=== PATIENT | male | born 1965 | race Caucasian/White ===

== ENCOUNTER 2019-12-07 06:17 | Emergency (ER) | payer OTHER ==
[2019-12-07 06:38] VITALS: TEMP 98.9; BMI 21.9
[2019-12-07 08:09] VITALS: BP 156/89; PULSE 86
[2019-12-07] MEDS ORDERED: predniSONE 20 MG TABLET (UD) PO ONE (08:20)
--- NOTE | 2019-12-07 08:46 | PDOC ---
Attending Attestation - Resident Resident Name: Allison Martinez - ED Attending Attestation I have performed the following: I have examined & evaluated the patient, The case was reviewed & discussed with the resident, I agree w/resident's findings & plan, Exceptions are as noted - HPI HPI: 12/07/19 15:56 54 yo M PMH COPD, current smoker, presenting with SOB and cough. States that starting this morning, he has developed worsening cough and SOB above his baseline, exacerbated by lying flat on his back. - Physicial Exam PE: 12/07/19 15:56 Vitals: Triage Vital signs reviewed General Appearance: No acute distress, well nourished well developed, Cardiac: Regular rate and rhythym, no murmurs, no rubs, no gallops, Lungs: Clear to auscultation bilateral, good air movement bilaterally, Abdomen: Soft, non distended, normal bowel sounds, non tender to palpation Extremities: Full range of motion to all extremities, no cyanosis, clubbing, or edema Skin: Warm and dry, no rashes or lesions, no rash, no petechiae Psych: Normal mood, normal affect - Medical Decision Making 12/07/19 15:56 Wheezing improved satting 99% on room air chest x-ray with no active disease We will discharge with MDI at home with spacer Findings, need for follow-up and strict return instructions discussed with patient. Discharge - Discharge Information Problems reviewed: Yes Clinical Impression/Diagnosis: SOB (shortness of breath), Cough, COPD exacerbation - Admission No - Additional Discharge Information Prescriptions: Prednisone [Prednisone 50 MG TABLETS] 50 mg PO DAILY #5 tablet Albuterol Sulfate Inhaler - [Ventolin HFA Inhaler -] 2 inh PO Q4H #1 inh - Follow up/Referral Referrals: [facility] [place] [Provider Group] Radha Blair DPM [Staff Physician] - Bryan Gersham MD, [Staff Physician] - - Patient Discharge Instructions Patient Printed Discharge Instructions: How to Use a Metered-Dose Inhaler Additional Instructions: You were seen with shortness of breath. Your X ray did not show any acute issues. Your symptoms are likely due to your COPD. We have given you referrals to primary care, pulmonology (lungs), and podiatry (foot). Please call to make appointments. Another inhaler has been prescribed, please read the attached instructions on how to take it properly. Return to the ER if you develop new or worsening symptoms. - Post Discharge Activity
--- NOTE | 2019-12-07 08:49 | PDOC ---
History of Present Illness - General Chief Complaint: Respiratory Stated Complaint: ASTHMA Time Seen by Provider: 12/07/19 07:54 - History of Present Illness Initial Comments: 12/07/19 08:44 54 yo M PMH COPD, current smoker, presenting with SOB and cough. States that starting this morning, he has developed worsening cough and SOB above his baseline, exacerbated by lying flat on his back. Got an albuterol inhaler 5 days ago but is not sure how to use it correctly; notes that he has tried 130 puffs in 5 days without relief. Denies CP, abd pain, N/V, fevers/chills. Past History - Past Medical History Allergies/Adverse Reactions: Allergies Allergy/AdvReac Type Severity Reaction Status Date / Time No Known Allergies Allergy Verified 12/07/19 06:20 Home Medications: Ambulatory Orders Albuterol Sulfate Inhaler - [Ventolin HFA Inhaler -] 2 inh PO Q4H #1 inh 12/07/19 Prednisone [Prednisone 50 MG TABLETS] 50 mg PO DAILY #5 tablet 12/07/19 Anemia: Yes COPD: No - Immunization History Td Vaccination: Yes TDAP Vaccination: Yes Immunization Up to Date: Yes - Psycho Social/Smoking Cessation Hx Smoking History: Unknown if ever smoked Have you smoked in the past 12 months: No Information on smoking cessation initiated: No Hx Alcohol Use: No Drug/Substance Use Hx: No Review of Systems - Review of Systems Comments:: 12/07/19 07:57 GENERAL/CONSTITUTIONAL: denies fever, chills, diaphoresis, generalized weakness, malaise, loss of appetite, weight change HEAD, EYES, EARS, NOSE AND THROAT: denies rhinorrhea, nasal congestion, throat pain, throat swelling, difficulty swallowing, mouth swelling, ear pain, eye pain, visual changes NEUROLOGIC: denies headache, focal weakness or paresthesias, dizziness, unsteady gait, seizure, mental status changes, bladder or bowel incontinence CARDIOVASCULAR: denies chest pain, syncope, palpitations, irregular heart rate, lightheadedness, peripheral edema RESPIRATORY: endorses cough, shortness of breath, dyspnea with exertion, and whe ezing. Denies orthopnea, stridor, hemoptysis GASTROINTESTINAL: denies abdominal pain, abdominal distension, nausea, vomiting, diarrhea, constipation, melena, hematochezia GENITOURINARY: denies dysuria, frequency, urgency, hesitancy, hematuria, flank pain, genital pain MUSCULOSKELETAL: denies myalgia, arthralgia, joint swelling, back pain, neck pain SKIN: denies rash, itching, pallor HEMATOLOGIC/IMMUNOLOGIC: denies easy bleeding, easy bruising, lymphadenopathy, frequent infections *Physical Exam - Vital Signs Last Vital Signs Temp Pulse Resp BP Pulse Ox 98.9 F 86 20 156/89 95 12/07/19 06:23 12/07/19 08:05 12/07/19 08:05 12/07/19 08:05 12/07/19 08:05 - Physical Exam 12/09/19 19:04 Gen: well-developed, well-nourished, NAD Neuro: AAOX4, CN II-XII grossly intact HEENT: atraumatic, normocephalic Neck: trachea midline, supple CV: regular rate, regular rhythm, no murmurs, rubs, or gallops Pulm: diffuse expiratory wheezing Abd: soft, non-distended, non-tender MSK: full ROM, intact pulses Extr: no edema, no deformities Skin: warm, dry. Onychotic nails. ED Treatment Course - RADIOLOGY Radiology Studies Ordered: Category Date Time Status CHEST PA & LAT [RAD] Stat Radiology 12/07/19 08:21 Completed Medical Decision Making - Medical Decision Making 12/07/19 08:42 Concern for potential COPD exacerbation considering cough, SOB, wheezing, smoking history - prednisone 50mg - referrals to pulmonology, primary care, podiatry - chest PA + L - education on using inhaler properly - likely dc 12/07/19 08:50 CXR clear. Will dc with outpatient referrals. Discharge - Discharge Information Problems reviewed: Yes Clinical Impression/Diagnosis: SOB (shortness of breath), Cough, COPD exacerbation - Additional Discharge Information Prescriptions: Prednisone [Prednisone 50 MG TABLETS] 50 mg PO DAILY #5 tablet Albuterol Sulfate Inhaler - [Ventolin HFA Inhaler -] 2 inh PO Q4H #1 inh - Follow up/Referral Referrals: [facility] [place] [Provider Group] Bryan Gresham MD, MD [Staff Physician] - Radha Blair DPM [Staff Physician] - - Patient Discharge Instructions Patient Printed Discharge Instructions: How to Use a Metered-Dose Inhaler Additional Instructions: You were seen with shortness of breath. Your X ray did not show any acute issues. Your symptoms are likely due to your COPD. We have given you referrals to primary care, pulmonology (lungs), and podiatry (foot). Please call to make appointments. Another inhaler has been prescribed, please read the attached instructions on how to take it properly. Return to the ER if you develop new or worsening symptoms. - Post Discharge Activity
[2019-12-07] MEDS ORDERED: predniSONE 20 MG TABLET (UD) ONE (08:52)
[2019-12-07] MEDS ORDERED: predniSONE 10 MG TABLET (UD) ONE (08:52)
== END 2019-12-07 09:05 ==
LOC: JER 06:17
DX: J44.1 Chronic obstructive pulmonary disease with (acute) exacerbation (principal)
CPT/HCPCS: 71046-TC-FY; 99283-25

== ENCOUNTER 2020-12-04 17:20 | Emergency (ER) | payer OTHER ==
[2020-12-04] MEDS ORDERED: ALBUTEROL SO4 2.5/IPRATROPIUM 0.5 INH SOL 3 ML VIAL.NEB. NEB ONE (17:55)
[2020-12-04 17:57] VITALS: BP 124/89; PULSE 92; TEMP 98.4; BMI 21.9
[2020-12-04] MEDS ORDERED: ALBUTEROL SO4 HFA INHALER IH ONE ×2 (18:56→18:57)
== END 2020-12-04 19:08 | disposition home or self-care (01) ==
LOC: JER 17:20
PROC: 3E0F7GC Introduction of Other Therapeutic Substance into Respiratory Tract, Via Natural or Artificial Opening (ICD-10-PCS; principal; 2020-12-04)
DX: J44.1 Chronic obstructive pulmonary disease with (acute) exacerbation (principal)
CPT/HCPCS: 71045-TC-FY; 99284-25

== ENCOUNTER 2021-01-28 22:12 | Emergency (ER) | payer OTHER ==
[2021-01-28] MEDS ORDERED: DEXAMETHASONE SOD PHOSPHATE 10 MG/1 ML VIAL ONE (22:23)
[2021-01-28 22:24] VITALS: BP 134/76; PULSE 85; TEMP 98.2; BMI 25.0
[2021-01-28] MEDS ORDERED: PETROLATUM, WHITE 30 GM TUBE TP ONE (22:40)
[2021-01-28] MEDS ORDERED: ALBUTEROL SO4 2.5/IPRATROPIUM 0.5 INH SOL 3 ML VIAL.NEB. NEB ONE (22:48)
[2021-01-28] MEDS: ALBUTEROL SO4 2.5/IPRATROPIUM 0.5 INH SOL 3 ML VIAL.NEB. NEB SCH ×2 (22:51→23:08)
[2021-01-28] MEDS ORDERED: guaiFENesin 600 MG TABLET.ER (FP) PO ONE (22:55)
== END 2021-01-28 23:55 | disposition home or self-care (01) ==
LOC: JER 22:12
PROC: 3E0F7GC Introduction of Other Therapeutic Substance into Respiratory Tract, Via Natural or Artificial Opening (ICD-10-PCS; principal; 2021-01-28)
DX: J45.909 Unspecified asthma, uncomplicated (principal)
CPT/HCPCS: 99283-25

== ENCOUNTER 2021-02-28 23:45 | Emergency (ER) | payer OTHER ==
[2021-02-28 23:54] VITALS: BP 137/91; PULSE 84; TEMP 98.1; BMI 19.4
[2021-03-01] MEDS ORDERED: DEXAMETHASONE SOD PHOSPHATE 4 MG/1 ML VIAL IVPUSH ONE (00:26)
[2021-03-01] MEDS ORDERED: DEXAMETHASONE SOD PHOSPHATE 10 MG/1 ML VIAL ONE (00:43)
[2021-03-01] MEDS ORDERED: ALBUTEROL SO4 2.5/IPRATROPIUM 0.5 INH SOL 3 ML VIAL.NEB. NEB ONE (00:43)
[2021-03-01] MEDS: ALBUTEROL SO4 2.5/IPRATROPIUM 0.5 INH SOL 3 ML VIAL.NEB. NEB SCH ×2 (00:50→01:40)
[2021-03-01 00:59] LABS: BASO % 0.9 % (0-2.0); EOS % 2.5 % (0-4.5); HEMATOCRIT 36.3 % (35.4-49); HEMOGLOBIN 12.6 GM/dL (11.7-16.9); LYMPH % 11.8 % (8-40); MCH 32.8 pg (25.7-33.7); MCHC 34.8 g/dl (32.0-35.9); MEAN CELL VOLUME 94.4 fl (80-96); MEAN PLT VOLUME 8.9 fl (7.5-11.1); MONO % 6.5 % (3.8-10.2); NEUT % 78.3 % (42.8-82.8); PLATELET COUNT 233 10^3/uL (134-434); RBC 3.85 M/mm3 (4.00-5.60); RDW 13.8 % (11.9-15.9); WHITE BLOOD COUNT 10.2 K/mm3 (4.0-10.0)
[2021-03-01 01:12] LABS: CALCIUM 8.7 mg/dL (8.5-10.1)
[2021-03-01 01:13] LABS: ALBUMIN 3.5 g/dl (3.4-5.0); BLOOD UREA NITROGEN 16.8 mg/dL (7-18)
[2021-03-01 01:16] LABS: CREATININE 0.9 mg/dL (0.55-1.3)
[2021-03-01 01:18] LABS: BILIRUBIN,TOTAL 0.4 mg/dL (0.2-1); TOT PROT 6.3 g/dl (6.4-8.2)
== END 2021-03-01 03:04 | disposition home or self-care (01) ==
LOC: JER 23:45
PROC: 3E0F7GC Introduction of Other Therapeutic Substance into Respiratory Tract, Via Natural or Artificial Opening (ICD-10-PCS; principal; 2021-03-01)
PROC: 3E033NZ Introduction of Analgesics, Hypnotics, Sedatives into Peripheral Vein, Percutaneous Approach (ICD-10-PCS; 2021-03-01)
DX: J45.20 Mild intermittent asthma, uncomplicated (principal)
CPT/HCPCS: 36415; 71046-TC-FY; 80053; 85025; 99284-25; C9803; U0003; U0005

== ENCOUNTER 2021-12-31 01:03 | Emergency (ER) | payer OTHER ==
[2021-12-31 01:18] VITALS: TEMP 97.7; BMI 23.5
[2021-12-31] MEDS ORDERED: predniSONE 20 MG TABLET (UD) PO ONE (01:29)
[2021-12-31] MEDS ORDERED: predniSONE 20 MG TABLET (UD) ONE (01:40)
[2021-12-31] MEDS ORDERED: ALBUTEROL SO4 HFA INHALER IH ONE ×2 (01:45→01:53)
[2021-12-31] MEDS: ALBUTEROL SO4 2.5/IPRATROPIUM 0.5 INH SOL 3 ML VIAL.NEB. NEB SCH ×3 (01:45→02:07)
[2021-12-31 03:47] VITALS: BP 139/76; PULSE 86
== END 2021-12-31 06:02 ==
LOC: JER 01:03
PROC: 3E0F7GC Introduction of Other Therapeutic Substance into Respiratory Tract, Via Natural or Artificial Opening (ICD-10-PCS; principal; 2021-12-31)
DX: R06.2 Wheezing (principal); J45.901 Unspecified asthma with (acute) exacerbation
CPT/HCPCS: 71045-TC-FY; 99283-25

== ENCOUNTER 2022-07-03 11:06 | Emergency (ER) | payer OTHER ==
[2022-07-03 11:35] VITALS: BP 123/76; PULSE 94; RESP 18; TEMP 98; BMI 19.5
[2022-07-03] MEDS ORDERED: methylPREDNISolone NA SUCC 125 MG/2 ML VIAL IVPUSH ONE (11:45)
[2022-07-03] MEDS ORDERED: methylPREDNISolone NA SUCC 125 MG/2 ML VIAL ONE (12:16)
[2022-07-03] MEDS ORDERED: ALBUTEROL SO4 2.5/IPRATROPIUM 0.5 INH SOL 3 ML VIAL.NEB. NEB ONE ×2 (12:16→12:38)
[2022-07-03] MEDS: ALBUTEROL SO4 2.5/IPRATROPIUM 0.5 INH SOL 3 ML VIAL.NEB. NEB SCH (12:22)
[2022-07-03 12:29] LABS: BASO % 1.4 % (0-2.0); EOS % 11.4 % (0-4.5); HEMATOCRIT 34.8 % (35.4-49); HEMOGLOBIN 12.1 GM/dL (11.7-16.9); LYMPH % 16.5 % (8-40); MCH 32.6 pg (25.7-33.7); MCHC 34.9 g/dl (32.0-35.9); MEAN CELL VOLUME 93.4 fl (80-96); MEAN PLT VOLUME 8.6 fl (7.5-11.1); MONO % 6.7 % (3.8-10.2); PLATELET COUNT 230 10^3/uL (134-434); RBC 3.73 M/mm3 (4.00-5.60); RDW 14.2 % (11.9-15.9); WHITE BLOOD COUNT 5.8 K/mm3 (4.0-10.0)
[2022-07-03 12:48] LABS: BLOOD UREA NITROGEN 12.3 mg/dL (7-18); CALCIUM 8.7 mg/dL (8.5-10.1)
[2022-07-03 12:50] LABS: ALBUMIN 3.1 g/dl (3.4-5.0); MAGNESIUM 2.2 mg/dL (1.8-2.4)
[2022-07-03 12:51] LABS: CREATININE 0.9 mg/dL (0.55-1.3)
[2022-07-03 12:53] LABS: BILIRUBIN,TOTAL 0.5 mg/dL (0.2-1); TOT PROT 6.6 g/dl (6.4-8.2)
[2022-07-03 13:38] LABS: PH,URINE 5.5 (5.0-8.0); URINE APPEARANCE CLEAR; URINE BILIRUBIN NEGATIVE (NEGATIVE); URINE COLOR YELLOW; URINE GLUCOSE (UA) TRACE (NEGATIVE); URINE KETONE NEGATIVE (NEGATIVE); URINE LEUK ESTERASE NEGATIVE (NEGATIVE); URINE NITRITE NEGATIVE (NEGATIVE); URINE PROTEIN TRACE (NEGATIVE); URINE UROBILINOGEN 0.2 mg/dL (0.2-1.0)
[2022-07-03] MEDS ORDERED: ALBUTEROL SO4 HFA INHALER IH ONE ×2 (13:44→14:06)
[2022-07-03] MEDS ORDERED: SULFAMETHOXAZOLE/TRIMETHOPRIM 800MG/160MG D.S. TABLET PO ONE (13:44)
[2022-07-03] MEDS ORDERED: SULFAMETHOXAZOLE/TRIMETHOPRIM 800MG/160MG D.S. TABLET ONE (14:05)
== END 2022-07-03 14:32 | disposition home or self-care (01) ==
LOC: JER 11:06
PROC: 3E033GC Introduction of Other Therapeutic Substance into Peripheral Vein, Percutaneous Approach (ICD-10-PCS; principal; 2022-07-03)
PROC: 3E0F7GC Introduction of Other Therapeutic Substance into Respiratory Tract, Via Natural or Artificial Opening (ICD-10-PCS; 2022-07-03)
DX: J44.1 Chronic obstructive pulmonary disease with (acute) exacerbation (principal); L73.9 Follicular disorder, unspecified
CPT/HCPCS: 0241U-QW; 36415; 71045-TC-FY; 80053; 81003; 83735; 84484; 85025; 87040; 87086; 93005; 93010; 99285-25

== ENCOUNTER 2022-08-05 12:05 | Emergency (ER) | payer OTHER ==
[2022-08-05 12:12] VITALS: RESP 18; TEMP 97.9; BMI 19.3
[2022-08-05] MEDS ORDERED: ALBUTEROL SO4 HFA INHALER IH ONE ×2 (14:21→14:43)
[2022-08-05 14:38] VITALS: BP 125/75; PULSE 90
[2022-08-05 15:09] LABS: BASO % 0.3 % (0-2.0); EOS % 0.1 % (0-4.5); HEMATOCRIT 40.6 % (35.4-49); HEMOGLOBIN 13.9 GM/dL (11.7-16.9); LYMPH % 10.9 % (8-40); MCH 32.2 pg (25.7-33.7); MCHC 34.2 g/dl (32.0-35.9); MEAN CELL VOLUME 94.1 fl (80-96); MEAN PLT VOLUME 8.7 fl (7.5-11.1); MONO % 6.8 % (3.8-10.2); NEUT % 81.9 % (42.8-82.8); PLATELET COUNT 200 10^3/uL (134-434); RBC 4.32 M/mm3 (4.00-5.60); RDW 13.8 % (11.9-15.9); WHITE BLOOD COUNT 7.6 K/mm3 (4.0-10.0)
[2022-08-05 15:17] LABS: INR 1.14 (0.83-1.09); PROTHROMBIN TIME (PATIENT) 13.1 SEC (9.7-13.0)
[2022-08-05 15:20] LABS: ACTIVATED PTT 28.5 SECONDS (25.2-36.5)
[2022-08-05 15:29] LABS: CALCIUM 8.7 mg/dL (8.5-10.1)
[2022-08-05 15:30] LABS: ALBUMIN 3.5 g/dl (3.4-5.0); BLOOD UREA NITROGEN 30.8 mg/dL (7-18)
[2022-08-05 15:33] LABS: CREATININE 0.8 mg/dL (0.55-1.3)
[2022-08-05 15:35] LABS: BILIRUBIN,TOTAL 0.4 mg/dL (0.2-1); TOT PROT 6.9 g/dl (6.4-8.2)
[2022-08-05] MEDS ORDERED: ACETAMINOPHEN 325 MG TABLET (FP) PO ONE (18:26)
== END 2022-08-05 20:50 | disposition home or self-care (01) ==
LOC: JER 12:05
DX: R05.1 Acute cough (principal)
CPT/HCPCS: 0241U-QW; 36415; 71046-TC-FY; 80053; 84484; 85025; 85610; 85730; 93005; 93010; 99284-25

== ENCOUNTER 2022-09-18 15:38 | Emergency (ER) | payer OTHER ==
[2022-09-18 16:10] VITALS: RESP 20; BMI 20.3
[2022-09-18] MEDS ORDERED: ALBUTEROL SO4 2.5/IPRATROPIUM 0.5 INH SOL 3 ML VIAL.NEB. NEB SCH (16:15)
[2022-09-18 17:59] LABS: BASO % 0.4 % (0-2.0); EOS % 7.2 % (0-4.5); HEMATOCRIT 43.3 % (35.4-49); HEMOGLOBIN 14.5 GM/dL (11.7-16.9); LYMPH % 8.4 % (8-40); MCH 31.7 pg (25.7-33.7); MCHC 33.6 g/dl (32.0-35.9); MEAN CELL VOLUME 94.4 fl (80-96); MEAN PLT VOLUME 8.8 fl (7.5-11.1); MONO % 2.5 % (3.8-10.2); NEUT % 81.5 % (42.8-82.8); PLATELET COUNT 222 10^3/uL (134-434); RBC 4.58 M/mm3 (4.00-5.60); RDW 14.3 % (11.9-15.9)
[2022-09-18 18:04] LABS: ALBUMIN 3.6 g/dl (3.4-5.0); BLOOD UREA NITROGEN 14.6 mg/dL (7-18)
[2022-09-18 18:07] LABS: CREATININE 0.7 mg/dL (0.55-1.3)
[2022-09-18 18:08] LABS: BILIRUBIN,TOTAL 0.8 mg/dL (0.2-1)
[2022-09-18 18:09] LABS: TOT PROT 6.8 g/dl (6.4-8.2)
[2022-09-18 18:50] VITALS: BP 125/68; PULSE 89; TEMP 97.9
== END 2022-09-18 18:35 | disposition home or self-care (01) ==
LOC: JER 15:38
PROC: 3E0F7GC Introduction of Other Therapeutic Substance into Respiratory Tract, Via Natural or Artificial Opening (ICD-10-PCS; principal; 2022-09-18)
DX: J44.9 Chronic obstructive pulmonary disease, unspecified (principal)
CPT/HCPCS: 0241U-QW; 36415; 71046-TC-FY; 80053; 84484; 85025; 99285-25

== ENCOUNTER 2022-09-27 11:36 | Emergency (ER) | payer OTHER ==
[2022-09-27] MEDS ORDERED: ALBUTEROL SO4 2.5/IPRATROPIUM 0.5 INH SOL 3 ML VIAL.NEB. NEB ONE ×4 (12:15→13:01)
[2022-09-27 12:23] VITALS: RESP 20; TEMP 97.8; BMI 19.5
[2022-09-27] MEDS ORDERED: DEXAMETHASONE 4 MG TABLET (FP) PO ONE (12:44)
[2022-09-27] MEDS ORDERED: DEXAMETHASONE 4 MG TABLET (FP) ONE (12:51)
[2022-09-27] MEDS ORDERED: ACETAMINOPHEN 325 MG TABLET (FP) PO ONE (13:48)
[2022-09-27] MEDS ORDERED: ALBUTEROL SO4 HFA INHALER IH PRN (14:06)
[2022-09-27] MEDS ORDERED: ACETAMINOPHEN 325 MG TABLET (FP) ONE (14:08)
[2022-09-27] MEDS ORDERED: ALBUTEROL SO4 HFA INHALER IH ONE (14:09)
[2022-09-27] MEDS ORDERED: AZITHROMYCIN 250 MG TABLET PO ONE (14:14)
[2022-09-27] MEDS ORDERED: AZITHROMYCIN 500 MG TABLET ONE (14:28)
[2022-09-27 15:10] VITALS: BP 128/84; PULSE 91
== END 2022-09-27 15:10 | disposition home or self-care (01) ==
LOC: JER 11:36
PROC: 3E0F7GC Introduction of Other Therapeutic Substance into Respiratory Tract, Via Natural or Artificial Opening (ICD-10-PCS; principal; 2022-09-27)
DX: J45.901 Unspecified asthma with (acute) exacerbation (principal)
CPT/HCPCS: 93005; 93010; 99285-25

== ENCOUNTER 2022-10-05 12:50 | Emergency (ER) | payer OTHER ==
[2022-10-05 13:40] VITALS: RESP 20; TEMP 97.5; BMI 20.3
[2022-10-05] MEDS ORDERED: ALBUTEROL SO4 2.5/IPRATROPIUM 0.5 INH SOL 3 ML VIAL.NEB. NEB ONE ×2 (13:50→14:10)
[2022-10-05] MEDS ORDERED: AZITHROMYCIN IVPB 500 MG in DEXTROSE 5%-WATER - 250 ML IVPB ONE (13:50)
[2022-10-05] MEDS ORDERED: methylPREDNISolone NA SUCC 125 MG/2 ML VIAL IVPB ONE (13:50)
[2022-10-05] MEDS ORDERED: AZITHROMYCIN IVPB 500 MG/250 ML BAG IVPB ONE (14:10)
[2022-10-05] MEDS ORDERED: methylPREDNISolone NA SUCC 125 MG/2 ML VIAL ONE (14:10)
[2022-10-05 15:15] LABS: BASO % 0.6 % (0-2.0); EOS % 5.4 % (0-4.5); HEMATOCRIT 41.3 % (35.4-49); HEMOGLOBIN 14.2 GM/dL (11.7-16.9); LYMPH % 8.7 % (8-40); MCHC 34.3 g/dl (32.0-35.9); MEAN CELL VOLUME 93.4 fl (80-96); MONO % 2.4 % (3.8-10.2); NEUT % 82.9 % (42.8-82.8); PLATELET COUNT 229 10^3/uL (134-434); RBC 4.42 M/mm3 (4.00-5.60); RDW 13.6 % (11.9-15.9); WHITE BLOOD COUNT 8.7 K/mm3 (4.0-10.0)
[2022-10-05 15:20] LABS: INR 1.18 (0.83-1.09); PROTHROMBIN TIME (PATIENT) 13.6 SEC (9.7-13.0)
[2022-10-05 15:23] LABS: ACTIVATED PTT 29.9 SECONDS (25.2-36.5)
[2022-10-05 15:34] LABS: ALBUMIN 3.5 g/dl (3.4-5.0); CALCIUM 8.8 mg/dL (8.5-10.1)
[2022-10-05 15:35] LABS: BLOOD UREA NITROGEN 17.5 mg/dL (7-18)
[2022-10-05 15:39] LABS: TOT PROT 6.6 g/dl (6.4-8.2)
[2022-10-05 15:43] LABS: BILIRUBIN,TOTAL 0.8 mg/dL (0.2-1)
[2022-10-05] MEDS ORDERED: ASPIRIN 81 MG CHEWABLE TABLETS PO ONE (16:14)
[2022-10-05] MEDS ORDERED: ASPIRIN 325 MG TABLET ONE (16:28)
[2022-10-05 18:29] VITALS: BP 113/71; PULSE 90
== END 2022-10-05 18:31 | disposition short-term general hospital (02) ==
LOC: JER 12:50
PROC: 3E0F7GC Introduction of Other Therapeutic Substance into Respiratory Tract, Via Natural or Artificial Opening (ICD-10-PCS; principal; 2022-10-05)
PROC: 3E03329 Introduction of Other Anti-infective into Peripheral Vein, Percutaneous Approach (ICD-10-PCS; 2022-10-05)
PROC: 3E033GC Introduction of Other Therapeutic Substance into Peripheral Vein, Percutaneous Approach (ICD-10-PCS; 2022-10-05)
DX: J44.1 Chronic obstructive pulmonary disease with (acute) exacerbation (principal); R94.31 Abnormal electrocardiogram [ECG] [EKG]
CPT/HCPCS: 0241U-QW; 36415; 71046-TC-FY; 80053; 84484; 85025; 85610; 85730; 93005; 93010; 99285-25

== ENCOUNTER 2023-04-07 07:49 | Emergency (ER) | payer OTHER ==
[2023-04-07] MEDS ORDERED: ALBUTEROL SO4 2.5/IPRATROPIUM 0.5 INH SOL 3 ML VIAL.NEB. NEB ONE ×3 (08:04→08:55)
[2023-04-07] MEDS ORDERED: ALBUTEROL SO4 0.083% IH SOL 2.5 MG/3 ML VIAL.NEB. NEB ONE (08:04)
[2023-04-07] MEDS ORDERED: DEXAMETHASONE SOD PHOSPHATE 10 MG/1 ML VIAL ONE (08:05)
[2023-04-07] MEDS ORDERED: ACETAMINOPHEN 325 MG TABLET (FP) PO ONE (08:41)
[2023-04-07 08:56] VITALS: BP 142/91; PULSE 70; RESP 24; TEMP 98; BMI 18.8
[2023-04-07] MEDS ORDERED: ACETAMINOPHEN 325 MG TABLET (FP) ONE (08:56)
[2023-04-07 09:00] LABS: VENOUS BASE EXCESS 2.4 mmol/L (-2-2); VENOUS O2 SATURATION 44.1 % (70-80); VENOUS PCO2 62.8 mmHg (38-52); VENOUS PH 7.306 (7.310-7.410)
[2023-04-07 09:03] LABS: BASO % 0.6 % (0-2.0); EOS % 6.7 % (0-4.5); HEMOGLOBIN 14.1 GM/dL (11.7-16.9); LYMPH % 11.3 % (8-40); MCH 30.9 pg (25.7-33.7); MCHC 32.9 g/dl (32.0-35.9); MEAN CELL VOLUME 93.9 fl (80-96); MEAN PLT VOLUME 9.5 fl (7.5-11.1); MONO % 3.3 % (3.8-10.2); NEUT % 78.1 % (42.8-82.8); PLATELET COUNT 206 10^3/uL (134-434); RBC 4.57 M/mm3 (4.00-5.60); RDW 13.8 % (11.9-15.9); WHITE BLOOD COUNT 7.9 K/mm3 (4.0-10.0)
[2023-04-07 09:26] LABS: POTASSIUM 3.9 mmol/L (3.5-5.1)
[2023-04-07 09:28] LABS: ALBUMIN 3.5 g/dl (3.4-5.0); BLOOD UREA NITROGEN 14.1 mg/dL (7-18); CALCIUM 8.6 mg/dL (8.5-10.1)
[2023-04-07 09:32] LABS: CREATININE 0.9 mg/dL (0.55-1.3)
[2023-04-07 09:33] LABS: BILIRUBIN,TOTAL 0.4 mg/dL (0.2-1); TOT PROT 6.6 g/dl (6.4-8.2)
[2023-04-07 09:36] LABS: N-TERMINAL BNP 3064.7 pg/ml (5-125)
[2023-04-07] MEDS ORDERED: AZITHROMYCIN IVPB 500 MG in DEXTROSE 5%-WATER - 250 ML IVPB ONE (10:58)
[2023-04-07] MEDS ORDERED: AZITHROMYCIN IVPB 500 MG/250 ML BAG IVPB ONE (11:22)
== END 2023-04-07 13:54 | disposition home or self-care (01) ==
LOC: JER 07:49
PROC: 3E03329 Introduction of Other Anti-infective into Peripheral Vein, Percutaneous Approach (ICD-10-PCS; principal; 2023-04-07)
PROC: 3E033GC Introduction of Other Therapeutic Substance into Peripheral Vein, Percutaneous Approach (ICD-10-PCS; 2023-04-07)
PROC: 3E0F7GC Introduction of Other Therapeutic Substance into Respiratory Tract, Via Natural or Artificial Opening (ICD-10-PCS; 2023-04-07)
DX: R06.02 Shortness of breath (principal); R41.82 Altered mental status, unspecified; J44.1 Chronic obstructive pulmonary disease with (acute) exacerbation
CPT/HCPCS: 0241U-QW; 36415; 71045-TC-FY; 80053; 82803; 83880; 84484; 85025; 93005; 93010; 99285-25

== ENCOUNTER 2024-03-17 03:03 | Emergency (ER) | payer OTHER ==
[2024-03-17 03:11] VITALS: BMI 21.1
[2024-03-17] MEDS ORDERED: ALBUTEROL SO4 2.5/IPRATROPIUM 0.5 INH SOL 3 ML VIAL.NEB. NEB ONE ×2 (03:15→03:26)
[2024-03-17] MEDS ORDERED: DEXAMETHASONE SOD PHOSPHATE 10 MG/1 ML VIAL ONE (03:26)
[2024-03-17 04:12] LABS: VENOUS BASE EXCESS -0.1 mmol/L (-2-2); VENOUS O2 SATURATION 88.2 % (70-80); VENOUS PCO2 45.4 mmHg (38-52); VENOUS PH 7.368 (7.310-7.410)
[2024-03-17 04:32] LABS: BASO % 0.4 % (0-2.0); EOS % 5.8 % (0-4.5); HEMATOCRIT 39.3 % (35.4-49); HEMOGLOBIN 13.5 GM/dL (11.7-16.9); LYMPH % 11.8 % (8-40); MCH 31.7 pg (25.7-33.7); MCHC 34.3 g/dl (32.0-35.9); MEAN CELL VOLUME 92.3 fl (80-96); MEAN PLT VOLUME 9.3 fl (7.5-11.1); MONO % 5.1 % (3.8-10.2); NEUT % 76.9 % (42.8-82.8); PLATELET COUNT 187 10^3/uL (134-434); RBC 4.26 M/mm3 (4.00-5.60); RDW 13.7 % (11.9-15.9); WHITE BLOOD COUNT 8.5 K/mm3 (4.0-10.0)
[2024-03-17 04:34] LABS: INR 1.21 (0.83-1.09); PROTHROMBIN TIME (PATIENT) 13.8 SEC (9.7-13.0)
[2024-03-17 04:36] LABS: ACTIVATED PTT 30.6 SECONDS (25.2-36.5)
[2024-03-17 04:45] LABS: POTASSIUM 4.2 mmol/L (3.5-5.1)
[2024-03-17 04:47] LABS: ALBUMIN 3.2 g/dl (3.4-5.0); BLOOD UREA NITROGEN 16.4 mg/dL (7-18)
[2024-03-17 04:50] LABS: CREATININE 1.1 mg/dL (0.55-1.3)
[2024-03-17 04:52] LABS: BILIRUBIN,TOTAL 0.4 mg/dL (0.2-1)
[2024-03-17] MEDS: SODIUM CHLORIDE 0.9% 500 ML INFUS.BAG IV ONE (05:36)
[2024-03-17 08:50] VITALS: BP 98/74; PULSE 66; RESP 20; TEMP 98
== END 2024-03-17 09:26 | disposition home or self-care (01) ==
LOC: JER 03:03
DX: J44.1 Chronic obstructive pulmonary disease with (acute) exacerbation (principal); J45.901 Unspecified asthma with (acute) exacerbation; R05.9 Cough, unspecified; R09.81 Nasal congestion; R06.02 Shortness of breath; F14.10 Cocaine abuse, uncomplicated; Z20.822 Contact with and (suspected) exposure to COVID-19
CPT/HCPCS: 0241U-QW; 36415; 71045-TC-FY; 80053; 82803; 84484; 85025; 85610; 85730; 93005; 93010; 99285-25

== ENCOUNTER 2024-04-03 05:57 | Inpatient (IN) | payer OTHER ==
[2024-04-03] MEDS ORDERED: ACETAMINOPHEN INJECTION 100 ML IVPB ONE (08:24)
[2024-04-03] MEDS: SODIUM CHLORIDE 0.9% 500 ML INFUS.BAG IV ONE (10:20)
[2024-04-03] MEDS: ACETAMINOPHEN 1000 MG/100 ML BAG IVPB ONE (10:20)
[2024-04-03 10:37] LABS: BASO % 0.8 % (0-2.0); EOS % 5.3 % (0-4.5); HEMATOCRIT 41.5 % (35.4-49); LYMPH % 12.2 % (8-40); MCH 31.4 pg (25.7-33.7); MCHC 33.7 g/dl (32.0-35.9); MEAN CELL VOLUME 93.2 fl (80-96); MEAN PLT VOLUME 9.1 fl (7.5-11.1); MONO % 4.1 % (3.8-10.2); NEUT % 77.6 % (42.8-82.8); PLATELET COUNT 203 10^3/uL (134-434); RBC 4.45 M/mm3 (4.00-5.60); RDW 14.4 % (11.9-15.9); WHITE BLOOD COUNT 9.7 K/mm3 (4.0-10.0)
[2024-04-03 10:40] LABS: INR 1.16 (0.83-1.09); PROTHROMBIN TIME (PATIENT) 13.1 SEC (9.7-13.0)
[2024-04-03 10:43] LABS: ACTIVATED PTT 30.7 SECONDS (25.2-36.5)
[2024-04-03 11:06] LABS: POTASSIUM 4.7 mmol/L (3.5-5.1)
[2024-04-03 11:07] LABS: CALCIUM 8.8 mg/dL (8.5-10.1)
[2024-04-03 11:08] LABS: ALBUMIN 3.5 g/dl (3.4-5.0); MAGNESIUM 2.2 mg/dL (1.8-2.4)
[2024-04-03 11:12] LABS: BILIRUBIN,TOTAL 0.7 mg/dL (0.2-1); TOT PROT 6.8 g/dl (6.4-8.2)
[2024-04-03] MEDS ORDERED: morphine SULFATE 4 MG/ML VIAL ONE ×2 (14:36→20:02)
[2024-04-03] MEDS: morphine SULFATE 4 MG/ML VIAL IVPUSH ONE ×2 (14:40→20:10)
[2024-04-03] MEDS: DEXTROSE 5%-LACTATED RINGERS 1,000 ML IV SCH (19:24)
[2024-04-04 08:59] VITALS: BP 106/83; PULSE 57; RESP 18; TEMP 98.1
[2024-04-04] MEDS: ACETAMINOPHEN 1000 MG/100 ML BAG IVPB PRN (09:22)
[2024-04-04 10:05] LABS: INR 1.25 (0.83-1.09); PROTHROMBIN TIME (PATIENT) 14.3 SEC (9.7-13.0)
[2024-04-04 10:07] LABS: BASO % 0.7 % (0-2.0); EOS % 8.5 % (0-4.5); HEMATOCRIT 36.2 % (35.4-49); HEMOGLOBIN 12.3 GM/dL (11.7-16.9); LYMPH % 17.9 % (8-40); MCH 31.5 pg (25.7-33.7); MCHC 34.1 g/dl (32.0-35.9); MEAN CELL VOLUME 92.4 fl (80-96); MEAN PLT VOLUME 9.3 fl (7.5-11.1); MONO % 4.5 % (3.8-10.2); NEUT % 68.4 % (42.8-82.8); PLATELET COUNT 177 10^3/uL (134-434); RBC 3.92 M/mm3 (4.00-5.60); RDW 14.3 % (11.9-15.9); WHITE BLOOD COUNT 6.7 K/mm3 (4.0-10.0)
[2024-04-04 10:19] LABS: POTASSIUM 4.2 mmol/L (3.5-5.1)
[2024-04-04 10:26] LABS: BLOOD UREA NITROGEN 11.5 mg/dL (7-18); CALCIUM 7.9 mg/dL (8.5-10.1); MAGNESIUM 2.1 mg/dL (1.8-2.4)
[2024-04-04 10:28] LABS: ALBUMIN 2.6 g/dl (3.4-5.0)
[2024-04-04 10:29] LABS: CREATININE 0.8 mg/dL (0.55-1.3); PHOSPHOROUS 3.4 mg/dL (2.5-4.9)
[2024-04-04 10:30] LABS: BILIRUBIN,TOTAL 0.7 mg/dL (0.2-1); TOT PROT 5.2 g/dl (6.4-8.2)
[2024-04-04 10:53] LABS: METHADONE, UR NEGATIVE (NEGATIVE); URINE BARBITURATES NEGATIVE (NEGATIVE)
[2024-04-04 10:54] LABS: PHENCYCLIDINE,URINE NEGATIVE (NEGATIVE); URINE BENZODIAZEPINES NEGATIVE (NEGATIVE)
[2024-04-04 10:59] LABS: COCAINE, UR POSITIVE (NEGATIVE); OPIATES, URI POSITIVE (NEGATIVE); URINE AMPHETAMINES NEGATIVE (NEGATIVE)
== END 2024-04-04 12:31 | disposition left against medical advice (07) | DRG 247 ==
LOC: JER 05:57 → JERBED 17:26 → J6S 04-04 02:47
PROVIDERS: ADMIT Internal Medicine; ATTEND Internal Medicine
DX: K56.1 Intussusception (principal); J44.9 Chronic obstructive pulmonary disease, unspecified; F19.10 Other psychoactive substance abuse, uncomplicated; J45.909 Unspecified asthma, uncomplicated; F17.200 Nicotine dependence, unspecified, uncomplicated; I44.7 Left bundle-branch block, unspecified; F14.10 Cocaine abuse, uncomplicated
CPT/HCPCS: 36415; 71045-TC-FY; 74177-TC; 80053; 80307; 83605; 83690; 83735; 84100; 85025; 85610; 85730; 86850; 86900; 86901; 93005; 93010; 99285-25; J0131; Q9967

== ENCOUNTER 2024-09-21 08:16 | Emergency (ER) | payer OTHER ==
[2024-09-21 08:30] VITALS: BP 110/87; PULSE 88; RESP 18; TEMP 97.3; BMI 18.9
[2024-09-21] MEDS ORDERED: ASPIRIN 81 MG CHEWABLE TABLETS ONE ×2 (09:01→11:34)
[2024-09-21] MEDS: ASPIRIN 81 MG CHEWABLE TABLETS PO ONE ×2 (09:05→11:35)
[2024-09-21 10:02] LABS: EOS % 11.1 % (0-4.5); HEMATOCRIT 39.6 % (35.4-49); HEMOGLOBIN 13.1 GM/dL (11.7-16.9); LYMPH % 20.9 % (8-40); MCH 30.4 pg (25.7-33.7); MCHC 33.1 g/dl (32.0-35.9); MEAN CELL VOLUME 91.9 fl (80-96); MEAN PLT VOLUME 9.7 fl (7.5-11.1); MONO % 8.8 % (3.8-10.2); NEUT % 58.2 % (42.8-82.8); PLATELET COUNT 179 10^3/uL (134-434); RBC 4.31 M/mm3 (4.00-5.60); RDW 16.3 % (11.9-15.9); WHITE BLOOD COUNT 5.3 K/mm3 (4.0-10.0)
[2024-09-21 10:28] LABS: POTASSIUM 4.5 mmol/L (3.5-5.1)
[2024-09-21 10:31] LABS: ALBUMIN 3.1 g/dl (3.4-5.0); BLOOD UREA NITROGEN 27.7 mg/dL (7-18)
[2024-09-21 10:34] LABS: CREATININE 0.9 mg/dL (0.55-1.3)
[2024-09-21 10:35] LABS: BILIRUBIN,TOTAL 0.5 mg/dL (0.2-1); TOT PROT 5.9 g/dl (6.4-8.2)
[2024-09-21 10:41] LABS: INR 1.19 (0.83-1.09); PROTHROMBIN TIME (PATIENT) 13.4 SEC (9.7-13.0)
[2024-09-21 10:43] LABS: ACTIVATED PTT 30.1 SECONDS (25.2-36.5)
[2024-09-21] MEDS ORDERED: CLOPIDOGREL BISULFATE 300 MG TABLET ONE (11:33)
[2024-09-21] MEDS ORDERED: HEPARIN NA (PORCINE) 5,000 UNITS/ML 1ML VIAL IVPUSH PRN ×2 (11:34)
[2024-09-21] MEDS ORDERED: HEPARIN NA (PORCINE) 5,000 UNITS/ML 1ML VIAL IVPUSH ONE (11:34)
[2024-09-21] MEDS: CLOPIDOGREL BISULFATE 300 MG TABLET PO ONE (11:35)
[2024-09-21] MEDS ORDERED: HEPARIN NA (PORCINE) 5,000 UNITS/ML 1ML VIAL ONE (11:44)
[2024-09-21] MEDS ORDERED: HEPARIN INFUSION - 25,000 UNITS/500 ML INFUS.BAG IVPB ONE (11:44)
[2024-09-21] MEDS ORDERED: HEPARIN INFUSION - 25,000 UNITS/500 ML INFUS.BAG IVPB SCH (11:45)
== END 2024-09-21 14:11 | disposition home or self-care (01) ==
LOC: JER 08:16
DX: F14.10 Cocaine abuse, uncomplicated (principal); R07.9 Chest pain, unspecified; Z20.822 Contact with and (suspected) exposure to COVID-19
CPT/HCPCS: 0241U-QW; 36415; 71045-TC-FY; 80053; 84484; 85025; 85610; 85730; 93005; 93010; 99285-25

== ENCOUNTER 2024-10-26 09:06 | Emergency (ER) | payer OTHER ==
[2024-10-26 10:31] VITALS: BP 102/89; PULSE 93; RESP 22; TEMP 98.3; BMI 17.2
[2024-10-26 11:44] LABS: EOS % 6.8 % (0-4.5); HEMATOCRIT 39.3 % (35.4-49); HEMOGLOBIN 12.8 GM/dL (11.7-16.9); LYMPH % 23.2 % (8-40); MCH 30.4 pg (25.7-33.7); MCHC 32.6 g/dl (32.0-35.9); MEAN CELL VOLUME 93.1 fl (80-96); MEAN PLT VOLUME 9.4 fl (7.5-11.1); MONO % 6.4 % (3.8-10.2); NEUT % 62.6 % (42.8-82.8); PLATELET COUNT 346 10^3/uL (134-434); RBC 4.22 M/mm3 (4.00-5.60); RDW 17.5 % (11.9-15.9)
[2024-10-26 11:53] LABS: ACTIVATED PTT 30.6 SECONDS (25.2-36.5)
[2024-10-26 12:08] LABS: POTASSIUM 4.9 mmol/L (3.5-5.1)
[2024-10-26 12:10] LABS: ALBUMIN 3.1 g/dl (3.4-5.0); BLOOD UREA NITROGEN 39.3 mg/dL (7-18); PROTHROMBIN TIME (PATIENT) 17.5 SEC (9.7-13.0)
[2024-10-26 12:11] LABS: INR 1.61 (0.83-1.09)
[2024-10-26 12:12] LABS: CALCIUM 8.9 mg/dL (8.5-10.1)
[2024-10-26 12:17] LABS: CREATININE 1.2 mg/dL (0.55-1.3)
[2024-10-26 12:18] LABS: BILIRUBIN,TOTAL 0.8 mg/dL (0.2-1)
== END 2024-10-26 15:00 | disposition home or self-care (01) ==
LOC: JER 09:06
DX: R07.9 Chest pain, unspecified (principal); R06.09 Other forms of dyspnea
CPT/HCPCS: 36415; 71045-TC-FY; 80053; 84484; 85025; 85610; 85730; 93005; 93010; 99285-25

== ENCOUNTER 2024-11-05 05:42 | Inpatient (IN) | payer OTHER ==
[2024-11-05 06:34] LABS: VENOUS BASE EXCESS -0.9 mmol/L (-2-2); VENOUS O2 SATURATION 42.8 % (70-80); VENOUS PCO2 44.6 mmHg (38-52); VENOUS PH 7.362 (7.310-7.410)
[2024-11-05] MEDS ORDERED: FUROSEMIDE 40 MG/4 ML INJECTABLE VIAL ONE (06:35)
[2024-11-05] MEDS ORDERED: methylPREDNISolone NA SUCC 125 MG/2 ML VIAL ONE (06:35)
[2024-11-05] MEDS ORDERED: ALBUTEROL SO4 2.5/IPRATROPIUM 0.5 INH SOL 3 ML VIAL.NEB. NEB ONE (06:35)
[2024-11-05] MEDS: methylPREDNISolone NA SUCC 125 MG/2 ML VIAL IVPUSH ONE (06:49)
[2024-11-05] MEDS: ALBUTEROL SO4 2.5/IPRATROPIUM 0.5 INH SOL 3 ML VIAL.NEB. NEB SCH ×2 (06:49→12:03)
[2024-11-05] MEDS: FUROSEMIDE 40 MG/4 ML INJECTABLE VIAL IVPUSH ONE (06:49)
[2024-11-05 06:58] LABS: CHLORIDE 102 mmol/L (98-107); POTASSIUM 5.1 mmol/L (3.5-5.1); SODIUM 137 mmol/L (136-145)
[2024-11-05 07:00] LABS: CALCIUM 8.2 mg/dL (8.5-10.1)
[2024-11-05 07:01] LABS: ALBUMIN 3.2 g/dl (3.4-5.0); ANION GAP 4 mmol/L (4-13); BLOOD UREA NITROGEN 38.5 mg/dL (7-18); CO2 31 mmol/L (21-32); GLUCOSE,RANDOM 96 mg/dL (74-106); MAGNESIUM 2.4 mg/dL (1.8-2.4)
[2024-11-05 07:04] LABS: CREATININE 1.1 mg/dL (0.55-1.3); PHOSPHOROUS 3.6 mg/dL (2.5-4.9); SGOT/AST 121 U/L (15-37); SGPT/ALT 120 U/L (13-61)
[2024-11-05 07:05] LABS: BILIRUBIN,TOTAL 1.5 mg/dL (0.2-1)
[2024-11-05 07:06] LABS: TOT PROT 5.9 g/dl (6.4-8.2)
[2024-11-05 07:07] LABS: ALK PHOS 75 U/L (45-117)
[2024-11-05 07:09] LABS: BASO % 0.3 % (0-2.0); EOS % 0.4 % (0-4.5); HEMATOCRIT 38.6 % (35.4-49); HEMOGLOBIN 12.9 GM/dL (11.7-16.9); LYMPH % 9.9 % (8-40); MCH 30.5 pg (25.7-33.7); MCHC 33.3 g/dl (32.0-35.9); MEAN CELL VOLUME 91.7 fl (80-96); MEAN PLT VOLUME 10.6 fl (7.5-11.1); MONO % 10.6 % (3.8-10.2); N-TERMINAL BNP 32887.4 pg/ml (5-125); NEUT % 78.8 % (42.8-82.8); PLATELET COUNT 253 10^3/uL (134-434); RBC 4.22 M/mm3 (4.00-5.60); RDW 17.5 % (11.9-15.9); WHITE BLOOD COUNT 9.4 K/mm3 (4.0-10.0)
[2024-11-05] MEDS ORDERED: ASPIRIN 81 MG CHEWABLE TABLETS ONE (07:33)
[2024-11-05] MEDS: ASPIRIN 81 MG CHEWABLE TABLETS PO ONE (07:40)
[2024-11-05] MEDS: ASPIRIN COATED 81 MG TABLET.EC PO SCH (11:07)
[2024-11-05] MEDS: PANTOPRAZOLE 40 MG TABLET PO SCH (11:07)
[2024-11-05] MEDS: busPIRone HCL 10 MG TABLET (FP) PO SCH (11:07)
[2024-11-05] MEDS: SPIRONOLACTONE 25 MG TABLET PO SCH (11:07)
[2024-11-05] MEDS: LOSARTAN POTASSIUM 25 MG TABLET PO SCH (11:08)
[2024-11-05] MEDS: ENOXAPARIN NA (PORCINE) 40 MG/0.4 ML DISP.SYRIN SQ SCH (11:08)
[2024-11-05] MEDS: POLYETHYLENE GLYCOL (HEALTHYLAX) 3350 17 GM PACKET PO SCH (11:08)
[2024-11-05] MEDS: metoPROLOL SUCCINATE 25 MG TAB.SR.24H (FP) PO SCH (11:08)
[2024-11-05] MEDS: EMPAGLIFLOZIN (JARDIANCE) 10 MG TABLET PO SCH (14:14)
[2024-11-05] MEDS: BUDESONIDE/FORMETEROL FUMARATE 160/4.5 mcg INHALER IH SCH (14:15)
[2024-11-05 14:45] LABS: URINE BARBITURATES NEGATIVE (NEGATIVE); URINE BENZODIAZEPINES NEGATIVE (NEGATIVE)
[2024-11-05 14:46] LABS: METHADONE, UR NEGATIVE (NEGATIVE); PHENCYCLIDINE,URINE NEGATIVE (NEGATIVE)
[2024-11-05 14:48] LABS: COCAINE, UR POSITIVE (NEGATIVE); OPIATES, URI NEGATIVE (NEGATIVE); URINE AMPHETAMINES NEGATIVE (NEGATIVE)
[2024-11-05] MEDS: SENNOSIDES 8.6MG TABLET (FP) PO SCH (22:09)
[2024-11-05] MEDS: DOCUSATE SODIUM 100 MG CAPSULE (FP) PO SCH (22:09)
[2024-11-05] MEDS: ATORVASTATIN CA 80 MG TABLET (FP) PO SCH (22:09)
[2024-11-06] MEDS: ALBUTEROL SO4 HFA INHALER IH PRN (06:56)
[2024-11-06 08:07] LABS: POTASSIUM 4.8 mmol/L (3.5-5.1)
[2024-11-06 08:08] LABS: BASO % 0.2 % (0-2.0); EOS % 0.3 % (0-4.5); HEMATOCRIT 40.4 % (35.4-49); HEMOGLOBIN 12.7 GM/dL (11.7-16.9); LYMPH % 7.5 % (8-40); MCH 29.4 pg (25.7-33.7); MCHC 31.5 g/dl (32.0-35.9); MEAN CELL VOLUME 93.1 fl (80-96); MEAN PLT VOLUME 10.6 fl (7.5-11.1); MONO % 10.1 % (3.8-10.2); NEUT % 81.9 % (42.8-82.8); PLATELET COUNT 206 10^3/uL (134-434); RBC 4.34 M/mm3 (4.00-5.60); RDW 17.7 % (11.9-15.9); WHITE BLOOD COUNT 9.6 K/mm3 (4.0-10.0)
[2024-11-06 08:10] LABS: CALCIUM 8.5 mg/dL (8.5-10.1)
[2024-11-06 08:11] LABS: MAGNESIUM 2.2 mg/dL (1.8-2.4)
[2024-11-06 08:13] LABS: ALBUMIN 2.8 g/dl (3.4-5.0); BLOOD UREA NITROGEN 42.9 mg/dL (7-18)
[2024-11-06 08:14] LABS: CREATININE 1.2 mg/dL (0.55-1.3); PHOSPHOROUS 3.3 mg/dL (2.5-4.9)
[2024-11-06 08:15] LABS: BILIRUBIN,TOTAL 0.8 mg/dL (0.2-1)
[2024-11-06 08:18] LABS: TOT PROT 5.4 g/dl (6.4-8.2)
[2024-11-06] MEDS: FUROSEMIDE 40 MG/4 ML INJECTABLE VIAL IVPUSH SCH (09:38)
[2024-11-06] MEDS: CARVEDILOL 3.125 MG TABLET (FP) PO SCH (11:31)
[2024-11-07 07:42] LABS: BASO % 0.4 % (0-2.0); EOS % 1.7 % (0-4.5); HEMATOCRIT 40.7 % (35.4-49); LYMPH % 10.6 % (8-40); MCH 29.5 pg (25.7-33.7); MEAN CELL VOLUME 92.3 fl (80-96); MEAN PLT VOLUME 10.4 fl (7.5-11.1); MONO % 8.7 % (3.8-10.2); NEUT % 78.6 % (42.8-82.8); PLATELET COUNT 187 10^3/uL (134-434); RBC 4.41 M/mm3 (4.00-5.60); RDW 17.4 % (11.9-15.9); WHITE BLOOD COUNT 11.9 K/mm3 (4.0-10.0)
[2024-11-07 08:16] LABS: POTASSIUM 4.3 mmol/L (3.5-5.1)
[2024-11-07 08:19] LABS: ALBUMIN 2.6 g/dl (3.4-5.0); BLOOD UREA NITROGEN 36.9 mg/dL (7-18)
[2024-11-07 08:22] LABS: PHOSPHOROUS 3.2 mg/dL (2.5-4.9)
[2024-11-07 08:24] LABS: BILIRUBIN,TOTAL 0.6 mg/dL (0.2-1); TOT PROT 5.4 g/dl (6.4-8.2)
[2024-11-07 13:50] LABS: HIV INTERPRETATION NEGATIVE (NEGATIVE)
[2024-11-08] MEDS: LOSARTAN POTASSIUM 25 MG TABLET PO SCH (10:04)
[2024-11-08 10:05] LABS: BASO % 0.5 % (0-2.0); EOS % 2.4 % (0-4.5); HEMATOCRIT 43.1 % (35.4-49); HEMOGLOBIN 14.2 GM/dL (11.7-16.9); LYMPH % 10.5 % (8-40); MCH 30.1 pg (25.7-33.7); MEAN CELL VOLUME 91.3 fl (80-96); MEAN PLT VOLUME 9.8 fl (7.5-11.1); MONO % 7.6 % (3.8-10.2); PLATELET COUNT 192 10^3/uL (134-434); RBC 4.72 M/mm3 (4.00-5.60); RDW 17.5 % (11.9-15.9); WHITE BLOOD COUNT 14.5 K/mm3 (4.0-10.0)
[2024-11-08] MEDS: FUROSEMIDE 40 MG TABLET (FP) PO SCH (10:07)
[2024-11-08] MEDS: methylPREDNISolone NA SUCC 40 MG/1 ML VIAL IVPUSH SCH (10:07)
[2024-11-08 11:14] LABS: POTASSIUM 4.1 mmol/L (3.5-5.1)
[2024-11-08 11:20] LABS: BLOOD UREA NITROGEN 44.2 mg/dL (7-18); CALCIUM 8.8 mg/dL (8.5-10.1)
[2024-11-08 11:24] LABS: PHOSPHOROUS 4.3 mg/dL (2.5-4.9)
[2024-11-08 11:25] LABS: BILIRUBIN,TOTAL 0.8 mg/dL (0.2-1)
[2024-11-08 11:27] LABS: TOT PROT 6.1 g/dl (6.4-8.2)
[2024-11-08 15:58] VITALS: BMI 20.9
[2024-11-08] MEDS: CEFTRIAXONE 1 G/50 ML PREMIX 50 ML IVPB SCH (20:05)
[2024-11-09 08:12] LABS: HEMATOCRIT 43.1 % (35.4-49); MCH 29.8 pg (25.7-33.7); MCHC 32.4 g/dl (32.0-35.9); MEAN CELL VOLUME 91.9 fl (80-96); MEAN PLT VOLUME 10.2 fl (7.5-11.1); PLATELET COUNT 197 10^3/uL (134-434); RBC 4.69 M/mm3 (4.00-5.60); RDW 17.6 % (11.9-15.9); WHITE BLOOD COUNT 19.7 K/mm3 (4.0-10.0)
[2024-11-09 08:29] LABS: POTASSIUM 4.7 mmol/L (3.5-5.1)
[2024-11-09 08:31] LABS: ALBUMIN 2.9 g/dl (3.4-5.0)
[2024-11-09 08:32] LABS: BLOOD UREA NITROGEN 50.7 mg/dL (7-18)
[2024-11-09 08:34] LABS: PHOSPHOROUS 3.9 mg/dL (2.5-4.9)
[2024-11-09 08:35] LABS: CREATININE 1.1 mg/dL (0.55-1.3)
[2024-11-09 08:36] LABS: BILIRUBIN,TOTAL 0.4 mg/dL (0.2-1); TOT PROT 6.4 g/dl (6.4-8.2)
[2024-11-10 09:03] LABS: HEMATOCRIT 41.7 % (35.4-49); HEMOGLOBIN 13.6 GM/dL (11.7-16.9); MCH 29.8 pg (25.7-33.7); MCHC 32.6 g/dl (32.0-35.9); MEAN CELL VOLUME 91.3 fl (80-96); MEAN PLT VOLUME 10.4 fl (7.5-11.1); PLATELET COUNT 188 10^3/uL (134-434); RBC 4.57 M/mm3 (4.00-5.60); RDW 17.6 % (11.9-15.9); WHITE BLOOD COUNT 22.5 K/mm3 (4.0-10.0)
[2024-11-10 09:07] LABS: POTASSIUM 4.5 mmol/L (3.5-5.1)
[2024-11-10 09:11] LABS: BLOOD UREA NITROGEN 52.5 mg/dL (7-18); MAGNESIUM 2.2 mg/dL (1.8-2.4)
[2024-11-10 09:14] LABS: PHOSPHOROUS 4.2 mg/dL (2.5-4.9)
[2024-11-10 09:47] LABS: ANISOCYTOSIS 0; HELMET CELLS 0; HOWELL-JOLLY BODIES 0; MACROCYTOSIS 0; OVALOCYTE 0; ROULEAU 0; SICKELED CELLS 0; TARGET CELLS 0; TEAR DROP CELLS 0; TOXIC GRANULATION 0
[2024-11-10] MEDS ORDERED: guaiFENesin 600 MG TABLET.ER (FP) PO PRN (12:30)
[2024-11-10] MEDS: MAG HYDROX/AL HYDROX/SIMETH 30 ML UNIT-DOSE CUP PO ONE (18:09)
[2024-11-11 09:23] LABS: HEMATOCRIT 45.3 % (35.4-49); HEMOGLOBIN 14.8 GM/dL (11.7-16.9); MCH 30.2 pg (25.7-33.7); MCHC 32.6 g/dl (32.0-35.9); MEAN CELL VOLUME 92.6 fl (80-96); MEAN PLT VOLUME 10.2 fl (7.5-11.1); PLATELET COUNT 224 10^3/uL (134-434); RBC 4.89 M/mm3 (4.00-5.60); RDW 17.5 % (11.9-15.9); WHITE BLOOD COUNT 24.6 K/mm3 (4.0-10.0)
[2024-11-11 09:36] LABS: POTASSIUM 4.7 mmol/L (3.5-5.1)
[2024-11-11 09:41] LABS: ALBUMIN 3.2 g/dl (3.4-5.0); BLOOD UREA NITROGEN 49.2 mg/dL (7-18)
[2024-11-11 09:43] LABS: CALCIUM 9.4 mg/dL (8.5-10.1)
[2024-11-11 09:44] LABS: CREATININE 0.9 mg/dL (0.55-1.3)
[2024-11-11 09:45] LABS: BILIRUBIN,TOTAL 0.5 mg/dL (0.2-1)
[2024-11-11 09:46] LABS: TOT PROT 7.1 g/dl (6.4-8.2)
[2024-11-12 05:14] VITALS: RESP 21
[2024-11-12 07:00] VITALS: BP 109/67; TEMP 98.7
[2024-11-12 11:13] VITALS: PULSE 101
[2024-11-12] MEDS ORDERED: AMOX TR/POT CLAV 875MG/125MG TABLETS (FP) PO SCH (17:30)
[2024-11-13] MEDS ORDERED: predniSONE 20 MG TABLET (UD) PO SCH (10:00)
== END 2024-11-12 11:55 | disposition home or self-care (01) | DRG 194 ==
LOC: JER 05:42 → UNDOADMOB 07:28 → JERBED 07:28 → INTOOBSV 07:28 → JERBED 08:40 → J8W 09:29 → J4S 20:58 → OBSVTOIN 11-10 17:59 → J4W 11-11 15:54
PROVIDERS: ADMIT Internal Medicine; ATTEND Nurse Practitioner Acute Care
DX: I11.0 Hypertensive heart disease with heart failure (principal); I50.23 Acute on chronic systolic (congestive) heart failure; J18.9 Pneumonia, unspecified organism; I42.8 Other cardiomyopathies; F14.188 Cocaine abuse with other cocaine-induced disorder; I21.A1 Myocardial infarction type 2; F41.9 Anxiety disorder, unspecified; J44.9 Chronic obstructive pulmonary disease, unspecified; E78.5 Hyperlipidemia, unspecified; I47.29 Other ventricular tachycardia; K76.1 Chronic passive congestion of liver
CPT/HCPCS: 0241U-QW; 36415; 71045-TC-FY; 80048; 80053; 80307; 82550; 82553; 82803; 82962; 83735; 83880; 84100; 84484; 85025; 85027; 86704; 86803; 87070; 87205; 87340; 87389; 87517; 93005; 93010; 94640; 94761; 97116-GP; 97161-GP; 99285-25; G0378